=== PATIENT | female | born 1965 | race Caucasian/White ===

== ENCOUNTER 2017-09-08 00:16 | Emergency (ER) | payer OTHER, MEDICAID ==
[~2017-09-08] VITALS: Ht 157.5 cm; Wt 113.4 kg
[2017-09-08 00:22] VITALS: Ht 157.5 cm; Wt 113.4 kg
[2017-09-08 03:12] VITALS: BP 116/80
== END 2017-09-08 03:12 | disposition home or self-care (01) ==
LOC: ED 00:16
DX: R07.89 Other chest pain (principal); R51 Headache; I10 Essential (primary) hypertension
CPT/HCPCS: J1170; J1200; J1885; J2765